=== PATIENT | male | born 1975 | race African-American/Black ===

== ENCOUNTER 2017-10-29 06:30 | Day surgery (SDC) | payer MEDICARE, MEDICAID, SELFPAY ==
[2017-10-25 15:02] VITALS: BMI 26.6
[2017-10-29] VITALS (10 sets, daily range): BP systolic 130–156; BP diastolic 79–96; PULSE 88–101; RESP 16–18; TEMP 36.1–43; O2SAT 93–100
--- NOTE | 2017-10-29 07:04 | HMH.ANESCL ---
[facility] Anesthesia Checklist - Structural Data Admitted From: Home Planned Operative Procedure/s: dental procedures Verified Documents: Surgical Consent - NPO Status Verified Time NPO: 23:00 - Airway Assessment C-Spine Mobility Assessed: Yes TMJ Mobility Assessed: Yes Dentition: Poor Dentition - Neurological Assessment Level of Consciousness: Awake, Restless - Psychosocial Assessment Concerns Regarding Surgery: pt is mentally retarded, versed 20 mg po given preop - Anesthesia Plan Anesthesia Risk discussed: No Anesthesia Plan: Not verified due to Patient Condition ASA Class: III Anesthesia Type: General [facility] Anesthesia HX I have reviewed the patient's past medical history: Yes Medical History: Denies:: Cancer, Diabetes Mellitus Type 1, Diabetes Mellitus Type 2, MRSA Amputation: No Fractures: No *Family Hx:: Diabetes, Hypertension
--- NOTE | 2017-10-29 07:07 | P.PN_ITS ---
[facility] Anesthesia Checklist - Structural Data Admitted From: Home Planned Operative Procedure/s: dental procedures Verified Documents: Surgical Consent - NPO Status Verified Time NPO: 23:00 - Airway Assessment C-Spine Mobility Assessed: Yes TMJ Mobility Assessed: Yes Dentition: Poor Dentition - Neurological Assessment Level of Consciousness: Awake, Restless - Psychosocial Assessment Concerns Regarding Surgery: pt is mentally retarded, versed 20 mg po given preop - Anesthesia Plan Anesthesia Risk discussed: No Anesthesia Plan: Not verified due to Patient Condition ASA Class: III Anesthesia Type: General [facility] Anesthesia HX I have reviewed the patient's past medical history: Yes Medical History: Denies:: Cancer, Diabetes Mellitus Type 1, Diabetes Mellitus Type 2, MRSA Amputation: No Fractures: No *Family Hx:: Diabetes, Hypertension
[2017-10-29 07:59] LABS: Basophils % 0.2 % (0.1-2.0); Eosinophils # 0.1 K/mm3 (0.0-0.4); Eosinophils % 1.1 % (0.1-12.0); Hematocrit 45.5 % (42.0-52.0); Hemoglobin 14.1 g/dL (14.1-18.0); Lymphocytes # 1.4 K/mm3 (0.7-4.5); Lymphocytes % 26.4 K/mm3 (10-50); Mean Corpuscular HGB Conc 30.9 g/dL (31.8-35.4); Mean Corpuscular Hemoglobin 27.2 pg (27.0-31.2); Mean Corpuscular Volume 87.8 fl (80-94); Mean Platelet Volume 8.6 fl (7.4-10.4); Monocytes # 0.3 K/mm3 (0.1-1.0); Monocytes % 5.6 % (1.7-9.3); Neutrophils # 3.7 K/mm3 (1.8-7.8); Neutrophils % 66.7 % (37.0-80.0); Platelet Count 177 K/mm3 (142-424); Red Blood Count 5.18 M/mm3 (4.60-6.20); Red Cell Distribution Width 13.4 % (11.5-17.5); White Blood Count 5.5 K/mm3 (4.8-10.8)
[2017-10-29 08:04] LABS: Alanine Aminotransferase 56 U/L (12-78); Albumin/Globulin Ratio 1.1 (1.1-1.8); Alkaline Phosphatase 97 U/L (46-116); Anion Gap 17.2 mEq/L (5-15); Aspartate Amino Transferase 20 U/L (15-37); Bilirubin,Total 0.4 mg/dL (0.2-1.0); Blood Urea Nitrogen 16 mg/dL (7-18); Calcium 8.9 mg/dL (8.5-10.1); Carbon Dioxide 28 mmol/L (21.0-32.0); Chloride 102 mmol/L (98-107); Creatinine Clearance Estimated 104 mL/min (0-300); Creatinine,Serum 0.95 mg/dL (0.70-1.30); Estimated Glomerular Filt Rate 87 ml/min (>60); GFR (African American) 105 ML/MIN (>60); Globulin 3.7 gm/dl (1.3-3.2); Glucose 150 mg/dL (74-106); Potassium 4.2 mmoL/L (3.5-5.1); Sodium 143 mmol/L (136-145); Total Protein,Serum 7.7 gm/dL (6.4-8.2)
--- NOTE | 2017-10-29 08:40 | SUR.OPER ---
Addendum entered by Rosalie Tanner RN 10/29/17 11:03: 0939-throat pack removed per MD at this time Original Note: 0816-throat pack inserted per MD at this time
--- NOTE | 2017-10-29 09:54 | HMH.ANESI ---
[facility] Anesthesia Record Part I Intake, IV Amount: 1,400 Estimated blood loss (mL): 0 Urine output (mL): 0 Blood Pressure: 140/84 SaO2: 97 Pulse Rate: 88 Respiratory Rate: 16 Temperature: 97 F Patient is:: Drowsy, Nasal O2, Stable Stable to PACU at:: 09:50
--- NOTE | 2017-10-29 09:55 | P.PN_ITS ---
[facility] Anesthesia Record Part II Discharge Time: 10:20 Destination: [facility] PACU nurse assessment reviewed?: Yes Patient Condition:: Good Anesthesia Complications:: None
--- NOTE | 2017-10-29 09:55 | HMH.ANESII ---
[facility] Anesthesia Record Part II Discharge Time: 10:20 [facility] nurse assessment reviewed?: Yes Patient Condition:: Good Anesthesia Complications:: None
--- NOTE | 2017-10-29 10:37 | PC.NURSE ---
10/29/17 0950 Scant blood tinged saliva noted in mouth consistent with procedure. No prob noted.
--- NOTE | 2017-10-29 10:40 | PC.NURSE ---
10/29/17 1000 Pt awake/oral airway out. Resp easy/reg. Pt calm and cooperative. Scant blood tinged saliva noted/no prob seen
--- NOTE | 2017-10-29 10:45 | PC.NURSE ---
10/29/17 1020 Only scant pink tinged salvia noted. no prob seen
[2017-10-30 13:59] LABS: Folate 14.9 ng/mL (>3.0); Vitamin B12 418 pg/mL (232-1245)
--- NOTE | 2017-10-30 16:40 | HMH.ORALP ---
Date of procedure: 10/29/17 Date of : 75 Pre-op Diagnosis:: Dental decay and periodontal gum disease. Post-op diagnosis:: same Procedure performed:: The 42, M patient was transported to the [facility] OR pre operative holding room. In the holding room, an IV was started. The patient was then transported to the operating room where Xiao was nasotracheal intubated. Anesthesia was induced and maintained. The patient was draped in the usual manner. 18 intraoral x-rays were taken. The throat was suctioned free of debris. One single moist throat pack was placed in the posterior oral pharynx. A complete intra-oral exam and review of the complete set of x-rays was completed. Periodontal scaling and root planing was done in all four quadrants. The patient was found to have the following decay:#14-MB, #21-MB, #22-F, #3-MDB were filled with B1 white resin filling material and #4- was filled with amalgam, silver filling material. No oral anesthetic was used due to be under general anesthesia. Estimated blood loss was nil. The patient tolerated all surgical procedures well and there were no surgical complications. The throat was irrigated and suctioned free of debris. The throat pack was removed. The patient was extubated without complications and taken to the postoperative anesthetic recovery room in satisfactory condition. Surgeon:: Rossi Vergara DMD Cad Specialist(s):: Emma Atkinson Anesthesia: RENA Estimated blood loss (mL): 0 Operative findings:: Same as procedure performed. Operative note:: Same as procedure performed. Disposition: PACU Specimens:: None Complications:: None
== END 2017-10-29 10:45 | disposition home or self-care (01) ==
LOC: OR 06:32
PROVIDERS: Family Provider Family Medicine; PCP Family Medicine; Visit Provider Dentist General Practice
DX: F79 Unspecified intellectual disabilities; F43.0 Acute stress reaction; K02.9 Dental caries, unspecified
CPT/HCPCS: 41899; D0210; D4341; 80053; 82607; 82746; 85025; J2405

== ENCOUNTER → 2018-11-08 16:30 | Outpatient (CLI) | payer MEDICARE, MEDICAID, SELFPAY ==
--- NOTE | 2018-11-08 16:36 | XR_ITS ---
XR chest 2V HISTORY: ITS.REASON: COUGHX2-3 WEEKS ORDERING PHYSICIAN: KEAGAN Tsang PATIENT AGE: 43 years COMPARISON: None available FINDINGS: This is a poor inspiratory effort and lateral film is markedly underpenetrated. However there appears be patchy ill-defined pneumonic infiltrate in the right lower lobe. The right upper lung field and left lung field are clear. Cardiac size is normal considering the poor inspiration. IMPRESSION: Right lower lobe pneumonia
== END ==
PROVIDERS: PCP Family Medicine; Visit Provider Physician Assistant
DX: R05 Cough (principal)
CPT/HCPCS: 71046

== ENCOUNTER → 2018-12-03 16:15 | Outpatient (CLI) | payer MEDICARE, MEDICAID, SELFPAY ==
--- NOTE | 2018-12-03 16:20 | XR_ITS ---
XR chest 2V HISTORY: Follow-up pneumonia ITS.REASON: PNEUMONIA OF RT LOWER LOBE ORDERING PHYSICIAN: Tashia Fox MD PATIENT AGE: 43 years COMPARISON: 11/08/2018 FINDINGS: The cardiomediastinal silhouette and pulmonary vascularity are within normal limits. Right lower lobe consolidation has improved. Chronic changes are present in the lung bases. Upper lobes are clear. IMPRESSION: Improvement in right lower lobe pneumonia
== END ==
PROVIDERS: PCP Family Medicine; Visit Provider Family Medicine
DX: J18.1 Lobar pneumonia, unspecified organism (principal)
CPT/HCPCS: 71046

== ENCOUNTER → 2019-01-29 15:03 | Outpatient (CLI) | payer MEDICARE, MEDICAID, SELFPAY ==
--- NOTE | 2019-01-29 15:08 | US_ITS ---
US soft tissue head and neck ORDERING PHYSICIAN : Tashia Fox MD PATIENT AGE: 44 years GENDER: Male HISTORY:ITS.REASON: ENLARGED LYMPH NODE COMPARISON: None TECHNIQUE: Routine FINDINGS: 50 areas of clinical concern involving the posterior neck and the left side at the palpable area there is no evidence of a fluid collection or solid lesion. There is no acoustic shadowing or enhancement. At the posterior neck there is the spinous process of one of the cervical vertebra in this area. IMPRESSION: No definite ultrasound abnormality along the area of clinical concern at the left lateral and posterior area of the neck.
== END ==
PROVIDERS: PCP Family Medicine; Visit Provider Family Medicine
DX: R59.0 Localized enlarged lymph nodes (principal)
CPT/HCPCS: 76536

== ENCOUNTER 2020-11-11 09:39 | Day surgery (SDC) | payer MEDICARE, MEDICAID, SELFPAY ==
[2020-11-05 10:31] VITALS: BMI 22.7
[2020-11-11] VITALS (9 sets, daily range): BP systolic 117–143; BP diastolic 71–92; PULSE 84–105; RESP 14–18; TEMP 36.1–38; O2SAT 88–98
[2020-11-11 11:08] LABS: POC Glucose,Bedside 112 (70-110)
[2020-11-11 11:19] LABS: Basophils % 0.3 % (0.1-2.0); Eosinophils # 0.1 K/mm3 (0.0-0.4); Eosinophils % 1.5 % (0.1-12.0); Hematocrit 42.5 % (42.0-52.0); Hemoglobin 13.6 g/dL (14.1-18.0); Lymphocytes # 1.6 K/mm3 (0.7-4.5); Mean Corpuscular Hemoglobin 27.2 pg (27.0-31.2); Mean Platelet Volume 8.3 fl (7.4-10.4); Monocytes # 0.3 K/mm3 (0.1-1.0); Monocytes % 5.5 % (1.7-9.3); Neutrophils # 3.6 K/mm3 (1.8-7.8); Neutrophils % 64.9 % (37.0-80.0); Platelet Count 191 K/mm3 (142-424); Red Blood Count 5.01 M/mm3 (4.60-6.20); Red Cell Distribution Width 14.2 % (11.5-17.5); White Blood Count 5.5 K/mm3 (4.8-10.8)
[2020-11-11 11:32] LABS: Hemoglobin A1C 6.7 % (4.0-6.0)
[2020-11-11 11:38] LABS: Coronavirus 19 IgG Antibody Positive (Negative); Coronavirus 19 IgM Antibody Negative (Negative)
[2020-11-11 11:43] LABS: 25-OH Vitamin D, Total 58.1 ng/mL (30-100)
[2020-11-11 12:09] LABS: Alanine Aminotransferase 37 U/L (12-78); Albumin Level 4.3 g/dl (3.5-5.0); Albumin/Globulin Ratio 1.6 (1.1-1.8); Alkaline Phosphatase 96 U/L (38-126); Anion Gap 13.2 mEq/L (5-15); Aspartate Amino Transferase 28 U/L (17-59); Bilirubin,Total 0.3 mg/dl (0.2-1.3); Blood Urea Nitrogen 16 mg/dl (9-20); Calcium 9.4 mg/dl (8.4-10.2); Carbon Dioxide 26 mmol/L (22.0-30.0); Chloride 105 mmol/L (98-107); Chol/HDL Ratio 3.3 (1-3.5); Cholesterol 154 mg/dl (140-200); Creatinine Clearance Estimated 108 mL/min (50-200); Estimated Glomerular Filt Rate 105 ml/min (>60); GFR (African American) 126 ML/MIN (>60); Globulin 2.7 g/dL (1.3-3.2); Glucose 119 mg/dl (74-100); HDL Cholesterol 46 mg/dl (40-60); Potassium 4.2 mmoL/L (3.5-5.1); Sodium 140 mmol/L (136-145); Triglycerides 58 mg/dl (30-150); VLDL Cholesterol 12 mg/dL (0-40)
[2020-11-11 12:25] LABS: Direct LDL Cholesterol 84.16 mg/dL (100-129)
[2020-11-11 12:40] LABS: Prostate Specific Ag Screen 0.6 ng/ml (0.0-4.0); Thyroid Stimulating Hormone 1.29 uIU/mL (0.465-4.68)
--- NOTE | 2020-11-11 15:11 | P.PN_ITS ---
[facility] Anesthesia Checklist - Patient Identification Patient Identification: Arm Band, Family, Guardian - Structural Data Admitted From: Home Planned Operative Procedure/s: Oral exam, x-rays, deep cleaning and scaling, fillings, extractions, crowns Consent for Planned Operative Procedure(s) Verified: Yes Verified Documents: Surgical Consent, History and Physical - NPO Status Verified Time NPO: 00:00 - Additional verifications Anesthesia Reactions: No Hx Blood Transfusions: No - Airway Assessment C-Spine Mobility Assessed: Yes (mp2) TMJ Mobility Assessed: Yes Dentition: Good Dentition - Neurological Assessment Level of Consciousness: Awake, Alert - Anesthesia Plan Anesthesia Risk discussed: Yes Anesthesia Plan: Verified ASA Class: III Anesthesia Type: General [facility] History I have reviewed the patient's past medical history: Yes Medical History: Reports:: Diabetes Mellitus Type 2 Denies:: Cancer, Diabetes Mellitus Type 1, Internal Pacemaker, MRSA, Seizures *Have you ever received a pneumonia vaccine?: No *Have you received a flu vaccine this season?: Yes Anesthesia experience/problems:: nac Laterality Cases: Bilateral: Other Other Surgeries: No: Pacemaker Amputation: No Fractures: No - *Social History Last grade of school completed: 11th or 12th Smoking Status: Never smoker Alcohol Intake: never Substance Use Type: denies use *Occupational Status:: disabled Housing: house Household Members: family *Travel in the last 8 weeks: None Family Hx:: Asthma
--- NOTE | 2020-11-11 15:11 | HMH.ANESI ---
[facility] Anesthesia Record Part I Intake, IV Amount: 1,500 Estimated blood loss (mL): 0 Urine output (mL): 0 Blood Pressure: 125/75 SaO2: 96 Pulse Rate: 98 Respiratory Rate: 16 Temperature: 97.3 F Patient is:: Drowsy, Stable Stable to PACU at:: 15:00
--- NOTE | 2020-11-11 15:17 | HMH.ORALP ---
Date of procedure: 11/11/20 Date of : 75 Pre-op Diagnosis:: dental decay Post-op diagnosis:: other (restored dental decay) Procedure performed:: The 45, M patient was transported to the [facility] OR pre operative holding room. In the holding room, an IV was started. The patient was then transported to the operating room where Xiao was nasotracheal intubated. Anesthesia was induced and maintained. The patient was draped in the usual manner. 18 intraoral x-rays were taken. The throat was suctioned free of debris. One single moist throat pack was placed in the posterior oral pharynx. A complete intra-oral exam and review of the complete set of x-rays was completed. Periodonal scaling and root planing was done in all four quadrants. The patient was found to have decay on #3-MODL surfaces, #4-MODB surfaces. Fillings were placed with silver amalgam filling material. #20-MODB surfaces were filled with B1 white resin flowable and composite material. Checked occlusion and adjusted bite. The patient was given 4 capules, 144mg of Octacaine with Epinephrine 1:100,000 which was 0.3mg for postoperative pain control. Estimated blood loss was nil. The patient tolerated all surgical procedures well and there were no surgical complications. The throat was irrigated and suctioned free of debris. The throat pack was removed. The patient was extubated without complications and taken to the postoperative anesthetic recovery room in satisfactory condition. Surgeon:: Rossi Vergara DMD Extruder Operator Helper(s):: Christiana Neal HEMSTITCHING MACHINE OPERATOR:: Tien Potter Anesthesia: GETA Estimated blood loss (mL): 1 Operative note:: same as procedure performed Disposition: PACU Specimens:: none Complications:: none
[2020-11-11 15:26] LABS: POC Glucose,Bedside 113 (70-110)
--- NOTE | 2020-11-12 08:01 | HMH.ANESII ---
[facility] Anesthesia Record Part II Discharge Time: 15:30 Destination: [facility] (OP Surgery) PACU nurse assessment reviewed?: Yes Patient Condition:: Good Anesthesia Complications:: None Swallowing reflex intact?: Yes Cyanosis?: No Blood Pressure: 137/86 Pulse Rate: 105 Temperature: 97 F Mental Status: Alert & Oriented (baseline) Pain level:: 0 Nausea and/or vomitting:: None Intake, IV Amount: 0
[2020-11-12 08:02] VITALS: BP 137/86; PULSE 105; TEMP 36.1
== END 2020-11-11 16:00 | disposition home or self-care (01) ==
LOC: OR 09:40
PROVIDERS: Nurse Practitioner Family; PCP Family Medicine; Visit Provider Dentist General Practice
PROC: (CPT 41899; principal; 2020-11-11 12:00)
DX: F43.0 Acute stress reaction (principal); K06.1 Gingival enlargement; E11.9 Type 2 diabetes mellitus without complications; G80.9 Cerebral palsy, unspecified; E55.9 Vitamin D deficiency, unspecified; Z12.5 Encounter for screening for malignant neoplasm of prostate; Z13.29 Encounter for screening for other suspected endocrine disorder
CPT/HCPCS: 41899; D4341; 80053; 80061; 82306; 82962; 83036; 84443; 85025; 86328; G0103; J2405; J2710

== ENCOUNTER → 2021-12-13 15:47 | Outpatient (CLI) | payer MEDICARE, MEDICAID, SELFPAY | PROVIDERS: Visit Provider Dentist General Practice | DX: Z01.812 Encounter for preprocedural laboratory examination (principal); Z11.52 Encounter for screening for COVID-19 | CPT/HCPCS: C9803; U0003; U0005 ==

== ENCOUNTER 2021-12-15 11:05 | Day surgery (SDC) | payer MEDICARE, MEDICAID, SELFPAY ==
[2021-12-15] VITALS (10 sets, daily range): BP systolic 130–155; BP diastolic 76–103; PULSE 90–115; RESP 14–18; TEMP 36.6–43; O2SAT 93–100; BMI 26.6
[2021-12-15 12:09] LABS: POC Glucose,Bedside 125 (70-110)
--- NOTE | 2021-12-15 13:31 | HMH.ANESCL ---
[facility] Anesthesia Checklist - Patient Identification Patient Identification: Family, Guardian, Verbal (Name & ) - Structural Data Admitted From: Home Planned Operative Procedure/s: Dental Cleaning and exam under anesthesia Consent for Planned Operative Procedure(s) Verified: Yes Verified Documents: Surgical Consent - NPO Status Verified Time NPO: 07:00 - Additional verifications Anesthesia Reactions: Yes (drowsiness) Hx Blood Transfusions: No Blood Transfusion Reaction: No - Airway Assessment C-Spine Mobility Assessed: No TMJ Mobility Assessed: No Dentition: Poor Dentition - Neurological Assessment Level of Consciousness: Awake - Anesthesia Plan ASA Class: III Anesthesia Type: General [facility] History I have reviewed the patient's past medical history: Yes Medical History: Reports:: Diabetes Mellitus Type 2 Denies:: Cancer, Diabetes Mellitus Type 1, Internal Pacemaker, MRSA, Seizures *Have you ever received a pneumonia vaccine?: No *Have you received a flu vaccine this season?: Yes Other Medical History: Denies: Blood Transfusion Reaction Anesthesia experience/problems:: none Laterality Cases: Bilateral: Other Other Surgeries: No: Pacemaker Amputation: No Fractures: No - *Social History Smoking Status: Never smoker Alcohol Intake: never Substance Use Type: denies use *Occupational Status:: disabled Housing: house Household Members: family *Travel in the last 8 weeks: None Family Hx:: Diabetes
--- NOTE | 2021-12-15 13:59 | SUR.OPER ---
0055-throat pack inserted per Dr. Vergara
--- NOTE | 2021-12-15 14:51 | SUR.OPER ---
1439-throat pack removed at this time per Dr. Vergara
--- NOTE | 2021-12-15 14:52 | P.PN_ITS ---
[facility] Anesthesia Record Part I Intake, IV Amount: 650 Estimated blood loss (mL): 10 Urine output (mL): 0 Blood Products used (#): none Blood Pressure: 155/99 SaO2: 97 Pulse Rate: 95 Respiratory Rate: 16 Temperature: 99.3 F Patient is:: Drowsy Stable to PACU at:: 14:47
[2021-12-15 14:57] LABS: POC Glucose,Bedside 140 (70-110)
[2021-12-16 07:33] VITALS: BP 148/95; PULSE 115; TEMP 36.6
--- NOTE | 2021-12-16 07:33 | P.PN_ITS ---
[facility] Anesthesia Record Part II Discharge Time: 15:17 Destination: [facility] Day Care (OP Surgery) PACU nurse assessment reviewed?: Yes Patient Condition:: Good Anesthesia Complications:: None Swallowing reflex intact?: Yes Cyanosis?: No Blood Pressure: 148/95 Pulse Rate: 115 Temperature: 97.8 F Mental Status: Alert & Oriented Pain level:: 0 Nausea and/or vomitting:: None Intake, IV Amount: 0
--- NOTE | 2021-12-16 10:01 | P.PCN_ITS ---
Date of procedure: 12/15/21 Date of : 75 Pre-op Diagnosis:: dental decay Post-op diagnosis:: same Procedure performed:: The 46, M patient was transported to the [facility] OR pre operative holding room per his mother. In the holding room, an IV was started. The patient was then transported to the operating room where Xiao was nasotracheal intubated. Anesthesia was induced and maintained. The patient was draped in the usual manner. 18 intraoral x-rays were taken. The throat was suctioned free of debris. One single moist throat pack was placed in the posterior oral pharynx. A complete intraoral exam and review of the complete set of x-rays was completed. Periodontal scaling and root planing was completed in all four quadrants, UR, UL, LR, LL. The patient was found to have decay present on several teeth. Restorations were completed on #8-MDLF surfaces, #27-MDLF surfaces, #23-MDFL surfaces, #22-MDFL surfaces, #21-MDB surfaces. Fillings were filled with A2 white composite filling material. The patient was given 4 capules, 144mg of Octacaine with Epinephrine 1:100,000 which was 0.3mg for postoperative pain control. Estimated blood loss was nil. The patient tolerated all surgical procedures well and there were no surgical complications. The throat was irrigated and suctioned free of debris. The throat pack was removed. The patient was extubated without complications and taken to the postoperative anesthetic recovery room in satisfactory condition. Surgeon:: Rossi Vergara DMD Associate Of Science In Nursing(s):: Christiana Neal CONFERENCE TRANSLATOR:: Other (Ady Tee) Anesthesia: GETA Estimated blood loss (mL): 0 Operative findings:: dental decay Operative note:: same as operative note Disposition: PACU Specimens:: none Complications:: none
== END 2021-12-15 15:50 | disposition home or self-care (01) ==
LOC: OR 11:09
PROVIDERS: PCP Family Medicine; Visit Provider Dentist General Practice
DX: K02.9 Dental caries, unspecified (principal); F43.0 Acute stress reaction; E11.9 Type 2 diabetes mellitus without complications
CPT/HCPCS: 41899; D2335; D4341; 82962; J0330; J2405

== ENCOUNTER → 2022-03-28 15:54 | Outpatient (CLI) | payer MEDICARE, MEDICAID, SELFPAY ==
[2022-03-28 17:41] LABS: Basophils # 0.1 K/mm3 (0-0.2); Basophils % 0.7 % (0.1-2.0); Eosinophils # 0.2 K/mm3 (0.0-0.4); Eosinophils % 2.7 % (0.1-12.0); Lymphocytes # 2.7 K/mm3 (0.7-4.5); Lymphocytes % 32.4 % (10-50); Mean Corpuscular HGB Conc 29.7 g/dL (31.8-35.4); Mean Corpuscular Hemoglobin 27.1 pg (27.0-31.2); Mean Platelet Volume 9.2 fl (7.4-10.4); Monocytes # 0.6 K/mm3 (0.1-1.0); Monocytes % 7.1 % (1.7-9.3); Neutrophils # 4.7 K/mm3 (1.8-7.8); Platelet Count 204 K/mm3 (142-424); Red Blood Count 5.17 M/mm3 (4.60-6.20); White Blood Count 8.2 K/mm3 (4.8-10.8)
[2022-03-28 18:59] LABS: Alanine Aminotransferase 79 U/L (12-78); Albumin Level 4.5 g/dl (3.5-5.0); Albumin/Globulin Ratio 1.6 (1.1-1.8); Alkaline Phosphatase 119 U/L (38-126); Anion Gap 14.3 mEq/L (5-15); Aspartate Amino Transferase 45 U/L (17-59); Blood Urea Nitrogen 15 mg/dl (9-20); Calcium 9.6 mg/dl (8.4-10.2); Carbon Dioxide 27 mmol/L (22.0-30.0); Chloride 105 mmol/L (98-107); Estimated Glomerular Filt Rate 104 ml/min (>60); GFR (African American) 125 ML/MIN (>60); Globulin 2.8 g/dL (1.3-3.2); Glucose 174 mg/dl (74-100); Potassium 4.3 mmoL/L (3.5-5.1); Sodium 142 mmol/L (136-145); Total Protein,Serum 7.3 g/dl (6.3-8.2)
[2022-03-28 19:00] LABS: Bilirubin,Total < 0.1 mg/dl (0.2-1.3)
[2022-03-28 19:28] LABS: Thyroid Stimulating Hormone 1.48 uIU/mL (0.465-4.68)
[2022-03-28 21:48] LABS: Hemoglobin A1C 7.9 % (4.0-6.0)
== END ==
PROVIDERS: PCP Family Medicine; Visit Provider Family Medicine
DX: I10 Essential (primary) hypertension (principal); E11.9 Type 2 diabetes mellitus without complications; Z79.84 Long term (current) use of oral hypoglycemic drugs
CPT/HCPCS: 36415; 80053; 83036; 84443; 85025